=== PATIENT | male | born 1935 | race Caucasian/White ===

== ENCOUNTER 2016-08-28 11:03 | Inpatient (IN) | payer MEDICARE, OTHER ==
--- NOTE | ~2016-08-28 | HP ---
History And Physical [place] [id number] [facility] [place]. [address] NAME: OLE TONY JR : 37 STATUS : ADM IN [facility]#: [id number] AGE: 81 ADM/REG DATE : 08/28/16 MR#: [id number] REPORT SERV DATE: 08/28/16 DICTATED BY: CLARICE CR DATE: 08/28/16 REPORT STATUS : Draft TRANSCRIBED BY: MODL DATE: 08/28/16 DATE OF ADMISSION: 08/28/2016 CHIEF COMPLAINT: Shortness of breath and cough. HISTORY OF PRESENT ILLNESS: The patient is an 81-year-old white male, who resides at home with his . He is currently on BiPAP but he can answer questions. He reports he has been short of breath for a couple of weeks with a cough with some scant sputum production. His reports over the weekend he was more short of breath and this morning when he got up, he could not get his breath at all. He was barely able to get any air to move at all. EMS was called. Apparently he had sats in the 60s. He subsequently arrived, was placed on BiPAP and became more comfortable. He is alert and oriented to person, place, and time. He answers questions appropriately although he is difficult to understand on the BiPAP. He had a low-grade temp at home in the 99 range. He did receive a flu vaccine this year. He has not had any nausea, vomiting, or diarrhea. He denies chest pain. Denies abdominal pain. He has had some ankle edema recently but nothing that he was concerned about. Really no other complaints. PAST MEDICAL HISTORY: 1. COPD, on chronic O2 at 3 L. 2. Atrial fibrillation, on chronic anticoagulation. 3. BPH. PAST SURGICAL HISTORY: He has had no surgeries. ALLERGIES: SULFA. SOCIAL HISTORY: He quit smoking about 30 years ago. Smoked about a pack per day for 30 years. He does not drink alcohol. He is . His is at bedside. FAMILY HISTORY: Negative for any type of lung disease. HOME MEDICATIONS: Reviewed and attached. REVIEW OF SYSTEMS: Full 10-point review of systems obtained. Pertinent positives already mentioned in the HPI. PHYSICAL EXAMINATION: VITAL SIGNS: Currently blood pressure 121/67, respiratory rate 23, pulse 78, sats are 100% on 40% FiO2 on BiPAP, and his temperature here was 97.9. GENERAL: Well-developed white male. HEENT: Normocephalic, atraumatic. He is wearing BiPAP. He is edentulous. NECK: Supple. HEART: Distant S1 and S2. LUNGS: He has diminished breath sounds in all lung [place] and he has an expiratory wheeze throughout. History And Physical [address] [address] NAME: OLE TONY JR : 37 STATUS : ADM IN [facility]#: [id number] AGE: 81 ADM/REG DATE : 08/28/16 MR#: [id number] REPORT SERV DATE: 08/28/16 DICTATED BY: CLARICE CR DATE: 08/28/16 REPORT STATUS : Draft TRANSCRIBED BY: SLIME DATE: 08/28/16 ABDOMEN: Soft, nontender, and nondistended. EXTREMITIES: Warm and dry. Skin is intact. He does not have any significant peripheral edema and he has warm feet to the touch with 2+ pulses. LAB AND X-RAY STUDIES: He has an atrial fibrillation with a rate about 100. His initial ABG is 7.22 with a pCO2 of 92. His followup ABG is 7.26 with a pCO2 of 73. CBC is essentially normal. Coags are normal. Chest x-ray did not show anything obvious, this is just a portable film, however. He does have some hyperinflation changes consistent with COPD. His lactate is 0.5. His BNP is 103. His flu swab is pending. His basic metabolic panel is normal other than a glucose of 159. His albumin 3.3. His LFTs are normal. Troponin is 0.02. His procalcitonin is less than 0.05. ASSESSMENT/PLAN: 1. Hypercapnic respiratory failure in a patient with known chronic obstructive pulmonary disease. He has had a good response to BiPAP here in the emergency department. His pH is increasing, his pCO2 is decreasing. His mental status has improved. He is currently alert and oriented to person, place, and time and talking appropriate. I think it is reasonable to continue him on the BiPAP for now in the [facility]. We will treat him aggressively with Pulmonary with nebulized therapy to include Brovana, Pulmicort, and DuoNebs. We will also add some steroids to his regimen. I am going to treat him empirically for pneumonia and repeat his chest x-ray tomorrow with PA and lateral. We will follow up with sputum cultures, blood cultures, and continue the current settings of BiPAP. We will keep his sats above 90 and follow his clinical course. We will recheck his ABG at 4 p.m. and again in the morning. 2. History of atrial fibrillation, on chronic Eliquis. We will continue his anticoagulation. He is currently rate controlled. We will go ahead and give him his Cardizem and his beta-jaida this morning. Hopefully, this will also help to control his rate. 3. History of BPH. 4. Deep venous thrombosis prophylaxis with subcutaneous Lovenox. 5. Disposition. Pending above aforementioned plan and workup. 6. Code status. The patient desires full code status. This was discussed at the bedside. JUSTICE/SLIME Clarice Cr M.D. / [id number] CC: Mariah Buck M.D.
--- NOTE | ~2016-08-28 | DS ---
Discharge Summary [facility] [address] [place]. [address] NAME: OLE TONY JR : 37 STATUS : DIS IN PAT#: [id number] AGE: 81 ADM/REG DATE : 08/28/16 MR#: [id number] REPORT SERV DATE: 09/02/16 DICTATED BY: ADRIANA BRAR DATE: 09/01/16 REPORT STATUS : Draft TRANSCRIBED BY: MODL DATE: 09/01/16 ADMISSION DATE: 08/28/2016 DISCHARGE DATE: 09/01/2016 DIAGNOSES OF DISCHARGE: 1. Chronic obstructive pulmonary disease exacerbation with hypercapnic respiratory failure on admission, resolved. 2. Chronic respiratory failure, on 3 L of oxygen per nasal cannula. 3. Atrial fibrillation, on chronic anticoagulation. 4. Benign prostatic hypertrophy. CONSULTANTS ON THE CASE: None. PROCEDURES DONE DURING THIS HOSPITALIZATION: None. TESTS DONE DURING THIS HOSPITALIZATION: Include chest x-ray, portable, on 08/28/2016 and 08/29/2016 showing hyperinflation, but not acute cardiopulmonary abnormalities that could be identified. Blood cultures have remained negative at discharge. His MRSA nasal swab has been negative. His ABG on admission was 722 with 92 and oxygen 555 on 100% FiO2, then at discharge, his ABG was 738, 54, and 121 on 3 L of oxygen. His procalcitonin has been negative. Cardiac enzymes have been normal. BNP 103.3. His hemoglobin A1c was 5.3, lactate 0.5. His influenza screen has been negative. White count was 7.8, hemoglobin 13.6, hematocrit 40.4, platelets 143. INR 1.5. HOSPITAL COURSE: This is a very pleasant 81 years old gentleman, who has been admitted on 08/28/2016 with increasing shortness of breath and cough. This is a patient, who does have a history of COPD, oxygen dependent, with chronic respiratory failure. He has been followed by Dr. Slade Parnell as an outpatient and otherwise, history of atrial fibrillation, on anticoagulation and BPH, who presents to [facility], as I said, with shortness of breath and cough. He reported this shortness of breath and just scant production sputum, but apparently according to the patient, prior to admission, he became more short of breath and on the day of admission, he could not breathe at all. He came to [facility] and he has been placed on BiPAP and admitted to [facility] for hypercapnic respiratory failure in a patient with chronic obstructive disease and chronic respiratory failure. The patient has been admitted, started on BiPAP, also aggressive pulmonary treatment, antibiotics, and steroids. The patient's BiPAP has been weaned successfully as tolerated and he has been weaned down on oxygen at 3 L of oxygen per nasal cannula, which has been at home. His steroids have been tapered as well and he has been changed to oral steroids. He has been transferred from [facility] to a telemetry bed and he started to work with Physical Therapy as well. On 09/01/2016, the patient has been ready for discharge. MEDICATIONS AT DISCHARGE: Would include Eliquis 5 mg p.o. b.i.d., Ceftin 500 p.o. b.i.d. for seven more days, Cardizem ER 180 p.o. daily, Flonase nasal spray two sprays each nostril b.i.d., Mucinex DM 600 mg t.i.d. with fluids, Lopressor 25 p.o. b.i.d., Protonix 40 p.o. daily, Flomax 0.4 p.o. daily, also Advair Diskus two puffs b.i.d., albuterol nebulizer one nebulizer q.4 hours p.r.n. for shortness of breath as well as Spiriva HandiHaler one Discharge Summary [address] [address] NAME: OLE TONY JR : 37 STATUS : DIS IN PAT#: [id number] AGE: 81 ADM/REG DATE : 08/28/16 MR#: [id number] REPORT SERV DATE: 09/02/16 DICTATED BY: ADRIANA BRAR DATE: 09/01/16 REPORT STATUS : Draft TRANSCRIBED BY: MODL DATE: 09/01/16 inhalation daily, also Sterapred double strength six-day pack #1 use as directed. FOLLOWUP: The patient has been advised to follow up with his primary care provider, Dr. Luis Augustin in one week after discharge; Pulmonary followup with the patient's steam engineer, Dr. Slade Parnell, in three to four weeks. After discharge, we will arrange home health as well. That has been discussed extensively with the patient. All the questions have been answered in full. CF/MODL Adriana Brar M.D. / [id number] CC: Mariah Enamorado M.D.
[2016-08-28 10:15] LABS: BASOPHILS 0.1 %; BASOPHILS ABSOLUTE 0.01 10/3/uL (0.0-0.16); EOSINOPHILS 0 %; ER CBC TAT 0 Hrs 08 Mins; HEMATOCRIT 45.2 % (40.0-51.0); HEMOGLOBIN 15.1 g/dL (13.6-17.8); IMMATURE GRANULOCYTES 0.4 %; IMMATURE GRANULOCYTES ABSOLUTE 0.04 10/3/uL (0.0-0.11); LYMPHOCYTES 8.2 %; LYMPHOCYTES ABSOLUTE 0.77 10/3/uL (0.67-4.30); MEAN CORPUSCULAR HEMOGLOB 32.1 pg (26.0-34.0); MEAN CORPUSCULAR VOLUME 96.2 fL (80-100); MEAN PLATELET VOLUME 10.1 fL (9.2-13.0); MONOCYTES 10.2 %; MONOCYTES ABSOLUTE 0.95 10/3/uL (0.21-1.20); NEUTROPHILS 81.1 %; NEUTROPHILS ABSOLUTE 7.57 10/3/uL (2.02-8.40); PLATELET COUNT 155 10/3/uL (150-400); RBC DISTRIBUTION WIDTH 13.7 % (12.0-16.0); WHITE BLOOD CELLS 9.3 10/3/uL (4.5-10.5)
[2016-08-28 10:21] LABS: MANUAL DIFF NO %; MEAN CORPUS HGB CONC 33.4 g/dL (32.0-36.0)
[2016-08-28 10:21] LABS: ALLENS TEST Pos; BIPAP 16/5 cm.H2O; CARBOXYHEMOGLOBIN 1.3 % (0-3); HCO3 (ACTUAL BICARBONATE) 36.4 MEQ/L (23-27); HEMOBLOGIN CONTENT 14.8 G/DL (14-18); INSTRUMENT SERIAL # 8087; METHEMOGLOBIN 0.3 % (0-3); PCO2 (CO2 TENSION) 92 MMHG (35-45); PO2 (O2 TENSION) 555 MMHG (79-93); SAMPLE Arterial; pH 7.22 (7.37-7.43)
[2016-08-28 10:23] LABS: INTERNATIONAL NORMAL RATI 1.5 UNITS (-); PARTIAL THROMBO TIME 29.1 SEC (22.5-37.2); PROTIME (NOT ORD) 18.2 SEC (12.0-14.5)
[2016-08-28 10:39] LABS: A/G RATIO 0.9 (0.7-1.9); ALBUMIN 3.3 G/DL (3.5-5.0); ALKALINE PHOSPHATASE 113 U/L (45-117); BUN (BLOOD UREA NITROGEN) 19 MG/DL (6-23); CALCIUM, SERUM 7.9 MG/DL (8.5-10.4); CHLORIDE, SERUM 101 MMOL/L (96-112); CO2 (CARBON DIOXIDE) 33 MMOL/L (24-34); GFR AFRICAN AMERICAN 110 ML/MIN (>=60); GFR NON AFRICAN AMERICAN 95 ML/MIN (>=60); GLOBULIN 3.8 G/DL (2.5-4.1); GLUCOSE, SERUM 159 MG/DL (60-99); LACTATE 0.5 MMOL/L (0.3-2.4); POTASSIUM, SERUM 3.6 MMOL/L (3.5-5.3); SGOT(AST) 30 U/L (5-40); SGPT(ALT) 34 U/L (5-65); SODIUM, SERUM 142 MMOL/L (135-148); TOTAL BILIRUBIN 1.2 MG/DL (0-1.2); TOTAL PROTEIN 7.1 G/DL (6.0-8.5); TROPONIN I 0.02 NG/ML (<0.05)
[2016-08-28 11:07] LABS: PROCALCITONIN <0.05 ng/mL (<0.5)
[2016-08-28 11:12] LABS: ALLENS TEST Pos; BIPAP 20/5 cm.H2O; CARBOXYHEMOGLOBIN 1.4 % (0-3); HCO3 (ACTUAL BICARBONATE) 31.6 MEQ/L (23-27); HEMOBLOGIN CONTENT 14.8 G/DL (14-18); INSTRUMENT SERIAL # 8087; METHEMOGLOBIN 0.3 % (0-3); O2 CONTENT 20.9 VOL% (18-24); PCO2 (CO2 TENSION) 73 MMHG (35-45); PO2 (O2 TENSION) 238 MMHG (79-93); SAMPLE Arterial; pH 7.26 (7.37-7.43)
[2016-08-28] MEDS ORDERED: PROAIR HFA PO (11:18)
[2016-08-28] MEDS ORDERED: LOP25 PO (11:18)
[2016-08-28] MEDS ORDERED: ADVAIR115P INH (11:19)
[2016-08-28] MEDS ORDERED: ELIQUIS 2.5 MG2.5 MG PO (11:19)
[2016-08-28] MEDS ORDERED: SPIRIVA INH (11:19)
[2016-08-28] MEDS ORDERED: TIAZA1 PO (11:20)
[2016-08-28] MEDS ORDERED: VITAMIN B PO (11:20)
[2016-08-28] MEDS ORDERED: ALBUTEROL5 INH (11:20)
[2016-08-28] MEDS ORDERED: FLOMAX4 PO (11:23)
[2016-08-28 13:52] LABS: ALLENS TEST Pos; BE (BASE EXCESS) 4.9 MEQ/L (0 +/- 2.5); CARBOXYHEMOGLOBIN 1.9 % (0-3); DEVICE NRB; HEMOBLOGIN CONTENT 15.7 G/DL (14-18); INSTRUMENT SERIAL # 8087; METHEMOGLOBIN 0.4 % (0-3); O2 CONTENT 22.2 VOL% (18-24); PCO2 (CO2 TENSION) 78 MMHG (35-45); PO2 (O2 TENSION) 312 MMHG (79-93); SAMPLE Arterial; pH 7.27 (7.37-7.43)
[2016-08-28 15:03] LABS: INFLUENZA A SCREEN NEGATIVE (NEGATIVE); INFLUENZA B SCREEN NEGATIVE (NEGATIVE)
[2016-08-28 17:07] LABS: ALLENS TEST Pos; BE (BASE EXCESS) 3.1 MEQ/L (0 +/- 2.5); BIPAP 19/4 cm.H2O; CARBOXYHEMOGLOBIN 0.8 % (0-3); HCO3 (ACTUAL BICARBONATE) 29.5 MEQ/L (23-27); HEMOBLOGIN CONTENT 14.8 G/DL (14-18); INSTRUMENT SERIAL # 8083; METHEMOGLOBIN 0.2 % (0-3); O2 CONTENT 20.3 VOL% (18-24); PCO2 (CO2 TENSION) 52 MMHG (35-45); PO2 (O2 TENSION) 106 MMHG (79-93); SAMPLE Arterial; pH 7.37 (7.37-7.43)
[2016-08-29 04:13] LABS: ALLENS TEST Pos; BE (BASE EXCESS) 4.6 MEQ/L (0 +/- 2.5); BIPAP 16/5 cm.H2O; CARBOXYHEMOGLOBIN 1.1 % (0-3); HCO3 (ACTUAL BICARBONATE) 31.1 MEQ/L (23-27); HEMOBLOGIN CONTENT 14.3 G/DL (14-18); INSTRUMENT SERIAL # 8083; METHEMOGLOBIN 0.2 % (0-3); O2 CONTENT 19.7 VOL% (18-24); OPERATOR ID 30014; PCO2 (CO2 TENSION) 54 MMHG (35-45); PO2 (O2 TENSION) 121 MMHG (79-93); SAMPLE Arterial; pH 7.38 (7.37-7.43)
[2016-08-29 05:59] LABS: BASOPHILS 0.2 %; BASOPHILS ABSOLUTE 0.01 10/3/uL (0.0-0.16); EOSINOPHILS 0 %; HEMATOCRIT 41.2 % (40.0-51.0); HEMOGLOBIN 13.8 g/dL (13.6-17.8); IMMATURE GRANULOCYTES 0.2 %; IMMATURE GRANULOCYTES ABSOLUTE 0.01 10/3/uL (0.0-0.11); LYMPHOCYTES 11.4 %; MEAN CORPUS HGB CONC 33.5 g/dL (32.0-36.0); MEAN CORPUSCULAR HEMOGLOB 32.7 pg (26.0-34.0); MEAN CORPUSCULAR VOLUME 97.6 fL (80-100); MEAN PLATELET VOLUME 10.1 fL (9.2-13.0); MONOCYTES 3.4 %; MONOCYTES ABSOLUTE 0.15 10/3/uL (0.21-1.20); NEUTROPHILS 84.8 %; NEUTROPHILS ABSOLUTE 3.71 10/3/uL (2.02-8.40); PLATELET COUNT 141 10/3/uL (150-400); RBC DISTRIBUTION WIDTH 13.3 % (12.0-16.0); RED CELL COUNT 4.22 10/6/uL (4.7-6.1)
[2016-08-29 06:11] LABS: BUN (BLOOD UREA NITROGEN) 19 MG/DL (6-23); CALCIUM, SERUM 8.1 MG/DL (8.5-10.4); CHLORIDE, SERUM 103 MMOL/L (96-112); CO2 (CARBON DIOXIDE) 30 MMOL/L (24-34); CREATININE 0.74 MG/DL (0.70-1.30); GFR AFRICAN AMERICAN 101 ML/MIN (>=60); GFR NON AFRICAN AMERICAN 87 ML/MIN (>=60); GLUCOSE, SERUM 138 MG/DL (60-99); POTASSIUM, SERUM 3.6 MMOL/L (3.5-5.3); SODIUM, SERUM 144 MMOL/L (135-148)
[2016-08-29 06:14] LABS: MANUAL DIFF NO %; WHITE BLOOD CELLS 4.4 10/3/uL (4.5-10.5)
[2016-08-29] MEDS ORDERED: ELIQUIS 5 MG TAB5 MG PO (16:16)
[2016-08-30 05:15] LABS: BASOPHILS 0.1 %; BASOPHILS ABSOLUTE 0.01 10/3/uL (0.0-0.16); EOSINOPHILS 0 %; HEMATOCRIT 39.4 % (40.0-51.0); HEMOGLOBIN 12.9 g/dL (13.6-17.8); IMMATURE GRANULOCYTES 0.3 %; IMMATURE GRANULOCYTES ABSOLUTE 0.03 10/3/uL (0.0-0.11); LYMPHOCYTES 4.5 %; LYMPHOCYTES ABSOLUTE 0.41 10/3/uL (0.67-4.30); MEAN CORPUS HGB CONC 32.7 g/dL (32.0-36.0); MEAN CORPUSCULAR HEMOGLOB 31.6 pg (26.0-34.0); MEAN CORPUSCULAR VOLUME 96.6 fL (80-100); MEAN PLATELET VOLUME 10.3 fL (9.2-13.0); MONOCYTES 3.3 %; NEUTROPHILS 91.8 %; NEUTROPHILS ABSOLUTE 8.41 10/3/uL (2.02-8.40); PLATELET COUNT 142 10/3/uL (150-400); RBC DISTRIBUTION WIDTH 13.3 % (12.0-16.0); RED CELL COUNT 4.08 10/6/uL (4.7-6.1)
[2016-08-30 05:16] LABS: BUN (BLOOD UREA NITROGEN) 22 MG/DL (6-23); CALCIUM, SERUM 7.7 MG/DL (8.5-10.4); CHLORIDE, SERUM 101 MMOL/L (96-112); CO2 (CARBON DIOXIDE) 33 MMOL/L (24-34); CREATININE 0.63 MG/DL (0.70-1.30); GFR AFRICAN AMERICAN 108 ML/MIN (>=60); GFR NON AFRICAN AMERICAN 93 ML/MIN (>=60); GLUCOSE, SERUM 140 MG/DL (60-99); PHOSPHORUS, SERUM 2.4 MG/DL (2.5-4.5); POTASSIUM, SERUM 3.8 MMOL/L (3.5-5.3); SODIUM, SERUM 143 MMOL/L (135-148)
[2016-08-30 05:17] LABS: MANUAL DIFF NO %; WHITE BLOOD CELLS 9.2 10/3/uL (4.5-10.5)
[2016-08-31 04:37] LABS: BASOPHILS 0 %; EOSINOPHILS 0 %; HEMATOCRIT 40.5 % (40.0-51.0); HEMOGLOBIN 13.9 g/dL (13.6-17.8); IMMATURE GRANULOCYTES 0.4 %; IMMATURE GRANULOCYTES ABSOLUTE 0.03 10/3/uL (0.0-0.11); LYMPHOCYTES 4.8 %; LYMPHOCYTES ABSOLUTE 0.38 10/3/uL (0.67-4.30); MEAN CORPUS HGB CONC 34.3 g/dL (32.0-36.0); MEAN CORPUSCULAR HEMOGLOB 32.2 pg (26.0-34.0); MEAN CORPUSCULAR VOLUME 93.8 fL (80-100); MEAN PLATELET VOLUME 10.2 fL (9.2-13.0); MONOCYTES 5.5 %; MONOCYTES ABSOLUTE 0.44 10/3/uL (0.21-1.20); NEUTROPHILS 89.3 %; NEUTROPHILS ABSOLUTE 7.15 10/3/uL (2.02-8.40); PLATELET COUNT 153 10/3/uL (150-400); RBC DISTRIBUTION WIDTH 13.4 % (12.0-16.0); RED CELL COUNT 4.32 10/6/uL (4.7-6.1)
[2016-08-31 04:38] LABS: MANUAL DIFF NO %
[2016-08-31 04:58] LABS: BUN (BLOOD UREA NITROGEN) 23 MG/DL (6-23); CALCIUM, SERUM 8.3 MG/DL (8.5-10.4); CHLORIDE, SERUM 103 MMOL/L (96-112); CO2 (CARBON DIOXIDE) 33 MMOL/L (24-34); CREATININE 0.61 MG/DL (0.70-1.30); GFR AFRICAN AMERICAN 109 ML/MIN (>=60); GFR NON AFRICAN AMERICAN 94 ML/MIN (>=60); POTASSIUM, SERUM 3.8 MMOL/L (3.5-5.3); SODIUM, SERUM 143 MMOL/L (135-148)
[2016-08-31 04:59] LABS: GLUCOSE, SERUM 105 MG/DL (60-99)
[2016-09-01 06:02] LABS: BASOPHILS 0.1 %; BASOPHILS ABSOLUTE 0.01 10/3/uL (0.0-0.16); EOSINOPHILS 0 %; HEMATOCRIT 40.4 % (40.0-51.0); HEMOGLOBIN 13.6 g/dL (13.6-17.8); IMMATURE GRANULOCYTES 0.8 %; IMMATURE GRANULOCYTES ABSOLUTE 0.06 10/3/uL (0.0-0.11); LYMPHOCYTES 6.8 %; LYMPHOCYTES ABSOLUTE 0.53 10/3/uL (0.67-4.30); MEAN CORPUS HGB CONC 33.7 g/dL (32.0-36.0); MEAN CORPUSCULAR HEMOGLOB 32.5 pg (26.0-34.0); MEAN PLATELET VOLUME 10.5 fL (9.2-13.0); MONOCYTES 12.8 %; NEUTROPHILS 79.5 %; PLATELET COUNT 143 10/3/uL (150-400); RBC DISTRIBUTION WIDTH 13.4 % (12.0-16.0); RED CELL COUNT 4.18 10/6/uL (4.7-6.1); WHITE BLOOD CELLS 7.8 10/3/uL (4.5-10.5)
[2016-09-01 06:17] LABS: MANUAL DIFF NO %; MEAN CORPUSCULAR VOLUME 96.7 fL (80-100)
[2016-09-01 06:23] LABS: BUN (BLOOD UREA NITROGEN) 19 MG/DL (6-23); CALCIUM, SERUM 8.4 MG/DL (8.5-10.4); CHLORIDE, SERUM 103 MMOL/L (96-112); CO2 (CARBON DIOXIDE) 32 MMOL/L (24-34); GFR AFRICAN AMERICAN 110 ML/MIN (>=60); GFR NON AFRICAN AMERICAN 95 ML/MIN (>=60); GLUCOSE, SERUM 108 MG/DL (60-99); SODIUM, SERUM 144 MMOL/L (135-148)
[2016-09-01] MEDS ORDERED: CEFT5 PO (10:32)
[2016-09-01] MEDS ORDERED: MUCINEX600 MG PO (10:33)
[2016-09-01] MEDS ORDERED: PROTONIX PO (10:33)
[2016-09-01] MEDS ORDERED: STERAPRED DS10 MG PO (10:34)
== END 2016-09-01 14:43 | disposition home health service (06) | DRG 189 ==
LOC: ER 11:03 → IMCU 13:17 → 5NO 08-31 04:41
PROVIDERS: Emergency Medicine; Internal Medicine
DX: J96.22 Acute and chronic respiratory failure with hypercapnia (principal); J44.1 Chronic obstructive pulmonary disease with (acute) exacerbation; Z99.81 Dependence on supplemental oxygen; I48.2 Chronic atrial fibrillation; Z79.01 Long term (current) use of anticoagulants; N40.0 Benign prostatic hyperplasia without lower urinary tract symptoms; J96.21 Acute and chronic respiratory failure with hypoxia
CPT/HCPCS: 36600; 71010; 80048; 80053; 81001; 82805; 82962; 83036; 83605; 83735; 83880; 84100; 84145; 84484; 85025; 85610; 85730; 87040; 87641; 87804; 93005; 94640; 94660; 96365; 96375; 97161-GP; 99291; A9270-GY; G8978-CI-GP; G8979-CH-GP; J0456; J2930

== ENCOUNTER 2016-09-09 18:51 | Emergency (ER) | payer MEDICARE, OTHER ==
[~2016-09-09 18:51] MED LIST: ADVAIR115P INH; ALBUTEROL5 INH; CEFT5 PO; ELIQUIS 2.5 MG2.5 MG PO; ELIQUIS 5 MG TAB5 MG PO; FLOMAX4 PO; LOP25 PO; MUCINEX600 MG PO; PROAIR HFA PO; PROTONIX PO; SPIRIVA INH; STERAPRED DS10 MG PO; TIAZA1 PO; VITAMIN B PO
[2016-09-09] MEDS ORDERED: L40 PO (20:16)
[2016-09-09 20:25] LABS: BASOPHILS 0.1 %; BASOPHILS ABSOLUTE 0.01 10/3/uL (0.0-0.16); EOSINOPHILS 0 %; HEMOGLOBIN 15.6 g/dL (13.6-17.8); IMMATURE GRANULOCYTES 0.7 %; LYMPHOCYTES 2.8 %; LYMPHOCYTES ABSOLUTE 0.38 10/3/uL (0.67-4.30); MEAN CORPUS HGB CONC 33.7 g/dL (32.0-36.0); MEAN CORPUSCULAR HEMOGLOB 32.5 pg (26.0-34.0); MEAN CORPUSCULAR VOLUME 96.5 fL (80-100); MEAN PLATELET VOLUME 9.8 fL (9.2-13.0); MONOCYTES 3.1 %; MONOCYTES ABSOLUTE 0.42 10/3/uL (0.21-1.20); NEUTROPHILS 93.3 %; NEUTROPHILS ABSOLUTE 12.73 10/3/uL (2.02-8.40); PLATELET COUNT 146 10/3/uL (150-400); RBC DISTRIBUTION WIDTH 13.1 % (12.0-16.0)
[2016-09-09 20:29] LABS: ER CBC TAT 0 Hrs 00 MinsNP; HEMATOCRIT 46.3 % (40.0-51.0); MANUAL DIFF NO %; WHITE BLOOD CELLS 13.6 10/3/uL (4.5-10.5)
[2016-09-09 20:32] LABS: INTERNATIONAL NORMAL RATI 1.4 UNITS (-); PARTIAL THROMBO TIME 27.4 SEC (22.5-37.2); PROTIME (NOT ORD) 16.7 SEC (12.0-14.5)
[2016-09-09 20:42] LABS: BUN (BLOOD UREA NITROGEN) 17 MG/DL (6-23); CALCIUM, SERUM 8.3 MG/DL (8.5-10.4); CHLORIDE, SERUM 95 MMOL/L (96-112); CREATININE 0.57 MG/DL (0.70-1.30); GFR AFRICAN AMERICAN 112 ML/MIN (>=60); GFR NON AFRICAN AMERICAN 97 ML/MIN (>=60); GLUCOSE, SERUM 113 MG/DL (60-99); POTASSIUM, SERUM 3.7 MMOL/L (3.5-5.3); SGOT(AST) 22 U/L (5-40); SGPT(ALT) 38 U/L (5-65); SODIUM, SERUM 140 MMOL/L (135-148); TOTAL BILIRUBIN 1.1 MG/DL (0-1.2); TROPONIN I <0.02 NG/ML (<0.05)
[2016-09-09 20:43] LABS: ALKALINE PHOSPHATASE 85 U/L (45-117); CO2 (CARBON DIOXIDE) 40 MMOL/L (24-34)
== END 2016-09-09 22:30 | disposition home or self-care (01) ==
LOC: ER 18:51
PROVIDERS: Emergency Medicine
DX: I48.2 Chronic atrial fibrillation (principal); J44.9 Chronic obstructive pulmonary disease, unspecified; Z79.899 Other long term (current) drug therapy; Z79.52 Long term (current) use of systemic steroids
CPT/HCPCS: 71010; 80053; 83735; 83880; 84484; 85025; 85610; 85730; 93005; 99285

== ENCOUNTER 2016-09-12 12:33 | Emergency (ER) | payer MEDICARE, OTHER ==
[2016-09-12 12:10] LABS: ALLENS TEST Pos; BE (BASE EXCESS) 12.8 MEQ/L (0 +/- 2.5); CARBOXYHEMOGLOBIN 1.8 % (0-3); DEVICE NC; HEMOBLOGIN CONTENT 16.4 G/DL (14-18); INSTRUMENT SERIAL # 8087; METHEMOGLOBIN 0.4 % (0-3); O2 CONTENT 21.8 VOL% (18-24); PCO2 (CO2 TENSION) 66 MMHG (35-45); PO2 (O2 TENSION) 91 MMHG (79-93); SAMPLE Arterial; pH 7.41 (7.37-7.43)
[~2016-09-12 12:33] MED LIST changes: +L40 PO
[2016-09-12 13:17] LABS: BASOPHILS 0 %; EOSINOPHILS 0.1 %; EOSINOPHILS ABSOLUTE 0.01 10/3/uL (0.0-0.53); ER CBC TAT 0 Hrs 05 Mins; HEMATOCRIT 48.8 % (40.0-51.0); HEMOGLOBIN 16.4 g/dL (13.6-17.8); IMMATURE GRANULOCYTES 0.6 %; IMMATURE GRANULOCYTES ABSOLUTE 0.08 10/3/uL (0.0-0.11); LYMPHOCYTES 6.9 %; LYMPHOCYTES ABSOLUTE 0.94 10/3/uL (0.67-4.30); MEAN CORPUS HGB CONC 33.6 g/dL (32.0-36.0); MEAN CORPUSCULAR HEMOGLOB 32.8 pg (26.0-34.0); MEAN CORPUSCULAR VOLUME 97.6 fL (80-100); MEAN PLATELET VOLUME 9.9 fL (9.2-13.0); MONOCYTES 10.8 %; MONOCYTES ABSOLUTE 1.48 10/3/uL (0.21-1.20); NEUTROPHILS 81.6 %; PLATELET COUNT 152 10/3/uL (150-400); RBC DISTRIBUTION WIDTH 13.3 % (12.0-16.0); WHITE BLOOD CELLS 13.7 10/3/uL (4.5-10.5)
[2016-09-12 13:18] LABS: MANUAL DIFF NO %
[2016-09-12 13:25] LABS: INTERNATIONAL NORMAL RATI 1.3 UNITS (-); PARTIAL THROMBO TIME 27.2 SEC (22.5-37.2); PROTIME (NOT ORD) 15.9 SEC (12.0-14.5)
[2016-09-12 13:35] LABS: A/G RATIO 1.1 (0.7-1.9); ALBUMIN 3.5 G/DL (3.5-5.0); ALKALINE PHOSPHATASE 92 U/L (45-117); BUN (BLOOD UREA NITROGEN) 16 MG/DL (6-23); CALCIUM, SERUM 8.4 MG/DL (8.5-10.4); CHLORIDE, SERUM 87 MMOL/L (96-112); CO2 (CARBON DIOXIDE) 42 MMOL/L (24-34); CREATININE 0.66 MG/DL (0.70-1.30); GFR AFRICAN AMERICAN 106 ML/MIN (>=60); GFR NON AFRICAN AMERICAN 91 ML/MIN (>=60); GLOBULIN 3.2 G/DL (2.5-4.1); GLUCOSE, SERUM 103 MG/DL (60-99); POTASSIUM, SERUM 3.6 MMOL/L (3.5-5.3); SGOT(AST) 25 U/L (5-40); SGPT(ALT) 38 U/L (5-65); SODIUM, SERUM 137 MMOL/L (135-148); TOTAL BILIRUBIN 1.5 MG/DL (0-1.2); TOTAL PROTEIN 6.7 G/DL (6.0-8.5); TROPONIN I <0.02 NG/ML (<0.05)
== END 2016-09-12 14:19 | disposition home or self-care (01) ==
LOC: ER 12:33
PROVIDERS: Emergency Medicine
DX: J44.9 Chronic obstructive pulmonary disease, unspecified (principal); I48.91 Unspecified atrial fibrillation; Z79.52 Long term (current) use of systemic steroids; Z79.899 Other long term (current) drug therapy
CPT/HCPCS: 36600; 71010; 80053; 82805; 83880; 84484; 85025; 85610; 85730; 93005; 96374; 99285; J2930